=== PATIENT | female | born 1945 | race Caucasian/White ===

== ENCOUNTER 2016-08-15 09:36 | Outpatient (CLI) | payer MEDICARE, MEDICAID | END 2016-08-15 09:37 | disposition home or self-care (01) | DX: Z12.31 Encounter for screening mammogram for malignant neoplasm of breast (principal); R92.2 Inconclusive mammogram ==

== ENCOUNTER 2016-09-12 12:50 | Outpatient (CLI) | payer MEDICARE, MEDICAID ==
--- NOTE | 2016-09-12 13:21 | Mammography Report ---
DIGITAL DIAGNOSTIC RIGHT MAMMOGRAM: 09/12/2016 CLINICAL INDICATION: Possible obscured nodule on screening. TECHNIQUE: Right true lateral and spot compression views. COMPARISON: 08/15/2016, 04/06/2015, 04/14/2014, 04/06/2013, 02/28/2012, 11/07/2010 FINDINGS: The right breast again demonstrates heterogeneously dense fibroglandular parenchyma. The density in question, in the right upper outer posterior breast, dissipates evenly on additional compr ession. No underlying mass lesion is seen. IMPRESSION: NEGATIVE EXAMINATION. RECOMMENDATION: Routine annual screening unless otherwise clinically indicated. BIRADS CATEGORY 1 - NEGATIVE. STANDARD QUALIFYING STATEMENTS 1. This examination was reviewed with the aid of Computer-Aided Detection (CAD). 2. A negative or benign imaging report should not delay biopsy if clinically suspicious findings are present. Consider surgical consultation if warranted. More than 5% of cancers are not identified by i maging. 3. Dense breasts may obscure an underlying neoplasm. JOB #: [id number] EXT JOB #:
== END 2016-09-12 12:51 | disposition home or self-care (01) ==
LOC: DI 12:50
PROVIDERS: ATTEND Internal Medicine
DX: R92.8 Other abnormal and inconclusive findings on diagnostic imaging of breast (principal)

== ENCOUNTER 2016-10-01 18:59 | Outpatient (CLI) | payer MEDICARE, MEDICAID ==
--- NOTE | 2016-10-04 10:18 | Ultrasound Report ---
REVISED: THIS REPORT WAS ORIGINALLY SIGNED ON 10/04/2016 @ 1235. ORDERS LINKED ON 10/15/2016. BILATERAL LOWER EXTREMITY ARTERIAL DUPLEX WITH ABIs: 10/01/2016 CLINICAL INDICATION: Cold, numb feet, diminished pulses. TECHNIQUE: Real-time sonographic vascular imaging was performed by the ferryboat helper through the lower extremities utilizing both color-flow and Doppler spectral analysis. Multiple leather goods sales representative static images were saved for review. RIGHT SIDE SITE PSV WAVEFORM STEN BIOINFORMATICS PROGRAMMER 133 triphasic PSFA 92 triphasic MSFA 82 triphasic DSFA 111 triphasic PFA 108 triphasic POP 64 triphasic JOSEPHINE 99 triphasic PLANT EQUIPMENT ENGINEER 84 triphasic PER 61 triphasic DPA 91 triphasic LEFT SIDE SITE PSV WAVEFORM STEN BIOINFORMATICS PROGRAMMER 132 triphasic PSFA 44 triphasic MSFA 93 triphasic DSFA 85 triphasic PFA 97 triphasic POP 67 triphasic JOSEPHINE 91 biphasic PLANT EQUIPMENT ENGINEER 85 triphasic PER 72 biphasic DPA 80 biphasic TECHNIQUE: Real-time scanning was performed. SYSTOLIC PRESSURES RIGHT LEFT BRACHIAL ARTERY 111/62 109/60 POSTERIOR TIBIAL ARTERY 128/55 124/53 ANTERIOR TIBIAL ARTERY --- --- PERONEAL ARTERY --- --- ANKLE/ARM INDEX 1.2 1.1 FINDINGS: RIGHT LEG: Waveforms are triphasic. There is no evidence of a focal velocity increase to suggest a hemodynamically significant stenosis. LEFT LEG: Waveforms are predominantly triphasic. There is no evidence of a focal velocity increase to suggest a hemodynamically significant stenosis. PROMISE on the right measures 1.2, and on the left measures 1.1. IMPRESSION: NO EVIDENCE OF A FOCAL HEMODYNAMICALLY SIGNIFICANT STENOSIS IN EITHER LEG. NORMAL ABIs. MTDD
== END 2016-10-01 19:00 | disposition home or self-care (01) ==
LOC: DI 18:59
PROVIDERS: ATTEND Internal Medicine
DX: R20.0 Anesthesia of skin (principal); R09.89 Other specified symptoms and signs involving the circulatory and respiratory systems
CPT/HCPCS: 93922; 93925

== ENCOUNTER 2017-01-06 17:22 | Outpatient (CLI) | payer MEDICARE, MEDICAID ==
[2017-01-06] MEDS ORDERED: IOPAMIDOL-300 50 ML VIAL ONE (17:28)
[2017-01-06] MEDS ORDERED: IOPAMIDOL-300 100 ML VIAL ONE (17:55)
[2017-01-06] MEDS ORDERED: IOPAMIDOL-300 50 ML VIAL PO ONE (18:51)
[2017-01-06] MEDS ORDERED: IOPAMIDOL-300 100 ML VIAL IVP ONE (18:55)
--- NOTE | 2017-01-06 19:33 | CT Preliminary Report ---
Exam: CT ABDOMEN/PELVIS W/ IMPRESSION: 1. Moderate to marked diverticulosis with small area of acute diverticulitis. 2. Other chronic or incidental findings. [facility] SITE ID: [id number]
--- NOTE | 2017-01-06 19:35 | CT Report ---
EXAM: CT ABDOMEN AND PELVIS EXAM DATE: 01/06/2017 06:38 PM. CLINICAL HISTORY: LEFT LOWER QUADRANT PAIN. COMPARISONS: None. TECHNIQUE: Routine helical CT imaging was performed through the abdomen and pelvis. IV contrast: 100 cc Isovue-300. Enteric contrast: Yes. Reconstructions: Coronal and sagittal. In accordance with CT protocol optimization, one or more of the following dose reduction techniques w ere utilized for this exam: automated exposure control, adjustment of mA and/or KV based on patient s ize, or use of iterative reconstructive technique. FINDINGS: Lung Bases: Unremarkable. Liver: Cyst or Hemangioma in left lobe. Otherwise unremarkable. Gallbladder/Bile Ducts: Unremarkable. Spleen: Normal. Pancreas: Normal. Adrenal Glands: Normal. Kidneys: Normal. No masses or hydronephrosis. Peritoneal Cavity/Bowel: Moderate to marked colonic diverticulosis with subtle localized wall thicken ing and hazy infiltration of adjacent fat at the descending sigmoid junction level. No free fluid, fr ee air, or lymphadenopathy. The appendix is well visualized and normal. Pelvic Organs: Normal. The bladder and visualized pelvic organs are within normal limits. Vasculature: No aneurysms or other significant abnormality. Bones: Degenerative changes. Prominent Schmorl's node in anterior upper endplate of L2. Other: None. IMPRESSION: 1. Moderate to marked diverticulosis with small area of acute diverticulitis. 2. Other chronic or incidental findings. [facility] Referring Provider Line: [phone] SITE ID: [id number]
== END 2017-01-06 17:23 | disposition home or self-care (01) ==
LOC: DI 17:22
PROVIDERS: ATTEND Internal Medicine
DX: K57.32 Diverticulitis of large intestine without perforation or abscess without bleeding (principal); K57.30 Diverticulosis of large intestine without perforation or abscess without bleeding
CPT/HCPCS: 74177; Q9967

== ENCOUNTER 2017-08-08 12:16 | Outpatient (CLI) | payer MEDICARE, MEDICAID ==
--- NOTE | 2017-08-08 17:33 | XRAY Report ---
TWO VIEW CHEST: 08/08/2017 CLINICAL INDICATION: Cough. FINDINGS: Frontal and lateral views of the chest demonstrate a right middle lobe infiltrate. The cardiac silhouette is within normal limits. No effusion or pneumothorax is seen. IMPRESSION: RIGHT MIDDLE LOBE INFILTRATE. TD: 08/08/2017 12:45
== END 2017-08-08 12:17 | disposition home or self-care (01) ==
LOC: DI 12:16
PROVIDERS: ATTEND Internal Medicine
DX: R05 Cough (principal); R91.8 Other nonspecific abnormal finding of lung field
CPT/HCPCS: 71046

== ENCOUNTER 2017-09-08 13:21 | Outpatient (CLI) | END 2017-09-08 13:22 | disposition home or self-care (01) ==

== ENCOUNTER 2017-09-24 09:20 | Outpatient (CLI) | payer MEDICARE, MEDICAID ==
--- NOTE | 2017-09-24 11:32 | Mammography Report ---
Procedure Date: 09/24/2017 Accession Number: [id number] / [id number] Procedure: [facility] - Diag Special Views Dig LT CPT Code: FULL RESULT: EXAM: Diag Special Views Dig LT DATE: 09/24/2017 9:36 AM CLINICAL HISTORY: Possible nodule left breast on screening examination TECHNIQUE: Left true lateral and spot compression views COMPARISON: 09/08/2017, 09/12/2016, 08/15/2016, 04/06/2015, 04/14/2014, 04/06/2013, 02/28/2012, 11/07/2010 FINDINGS: The breasts demonstrate heterogeneously dense fibroglandular parenchyma bilaterally. The questioned nodule does not persist in the left breast. No underlying mass lesion or architectural distortion is identified. IMPRESSION: Benign findings RECOMMENDATION: Recommend routine annual Screening mammography unless otherwise clinically indicated. BIRADS CATEGORY 2: Benign findings STANDARD QUALIFYING STATEMENTS: 1. This examination was reviewed with the aid of Computer-Aided Detection (CAD). 2. A negative or benign imaging report should not delay biopsy if clinically suspicious findings are present. Consider surgical consultation if warrented. More than 5% of cancers are not identified by imaging. 3. Dense breasts may obscure an underlying neoplasm.
== END 2017-09-24 09:21 | disposition home or self-care (01) ==
LOC: DI 09:20
PROVIDERS: ATTEND Internal Medicine
DX: R92.8 Other abnormal and inconclusive findings on diagnostic imaging of breast (principal)

== ENCOUNTER 2018-10-20 08:14 | Outpatient (CLI) | payer MEDICARE, MEDICAID ==
--- NOTE | 2018-10-21 09:38 | Mammography Report ---
Reason: SCREENING MAMMO Procedure Date: 10/20/2018 Accession Number: [id number] / [id number] Procedure: [facility] - Screening Mammo w/Hans CPT Code: FULL RESULT: EXAM: Screening Mammo w/Hans DATE: 10/20/2018 9:03 AM CLINICAL HISTORY: Screening encounter. History of nulliparity. TECHNIQUE: (B) - Bilateral CC, laterally exaggerated CC, MLO views were obtained. COMPARISON: 09/24/2017 through 04/14/2014. PARENCHYMAL PATTERN: (D) - The breast(s) demonstrate(s) heterogeneously dense fibroglandular parenchyma. FINDINGS: There are no suspicious masses, calcifications, or areas of distortion. IMPRESSION: Negative examination. BI-RADS category 1. RECOMMENDATION: (ANNUAL) - Recommend routine annual screening mammography. BI-RADS CATEGORY: (1) - Negative. STANDARD QUALIFYING STATEMENTS: 1. This examination was not reviewed with the aid of Computer-Aided Detection (CAD). 2. A negative or benign imaging report should not preclude biopsy if clinically suspicious findings are present. 3. Dense breasts may obscure an underlying neoplasm. 4. This examination was reviewed with the aid of 3D breast imaging (tomosynthesis).
== END 2018-10-20 08:15 | disposition home or self-care (01) ==
LOC: DI 08:14
PROVIDERS: ATTEND Internal Medicine
DX: Z12.31 Encounter for screening mammogram for malignant neoplasm of breast (principal)
CPT/HCPCS: 77063; 77067

== ENCOUNTER 2018-12-28 10:53 | Emergency (ER) | payer MEDICARE, MEDICAID ==
--- NOTE | 2018-12-28 12:58 | ED Physician Documentation ---
History of Present Illness - Stated complaint Stated Complaint: RT ARM PX,NAUSEA - Chief complaint Chief Complaint: Neuro - History obtained from History obtained from: Patient (73-year-old woman with history of dermatomyositis. She had been weaning off of her prednisone and stopped it a few weeks ago. Subsequent to that she got a Reclast and rituximab infusion on the fourth. That was 10 days ago. Subsequent to that she is had arm soreness and tightness on the right. Note made that she did get the infusion in that arm. The infusion was in the hand but she feels it kind of in the bicep and axilla. Its worse when she raises her arm. She is had episodes of feeling clammy. No primary chest pain.) Review of Systems Constitutional: reports: Chills, Fatigue, Sweats Cardiac: denies: Chest pain / pressure, Palpitations, Pedal edema, Calf pain Respiratory: denies: Dyspnea, Cough PD PAST MEDICAL HISTORY - Past Medical History Past Medical History: Yes Cardiovascular: High cholesterol Respiratory: None Neuro: None Endocrine/Autoimmune: HyPOthyroidism GI: None CARPENTRY TEACHER: None : None HEENT: Other Psych: None Musculoskeletal: Osteopenia Derm: Other Other Past Medical History: PRP - Past Surgical History Past Surgical History: Yes - Present Medications Home Medications: Ambulatory Orders Medication Instructions Recorded Confirmed Levothyroxine Sodium [Levoxyl] 1 mcg ORAL DAILY 04/20/14 04/21/14 Sertraline [Zoloft] 1 mg ORAL DAILY 04/20/14 04/21/14 Ibuprofen [Advil] 4 PRN 04/21/14 04/21/14 - Allergies Allergies/Adverse Reactions: Allergies Allergy/AdvReac Type Severity Reaction Status Date / Time azithromycin [From Zithromax] AdvReac Unknown Verified 12/28/18 10:59 ciprofloxacin [From Cipro] AdvReac Unknown Verified 12/28/18 10:59 ciprofloxacin HCl * AdvReac Unknown Verified 12/28/18 10:59 [From Cipro] erythromycin base AdvReac Unknown Verified 12/28/18 10:59 [From E-Mycin] Penicillins AdvReac Unknown Verified 12/28/18 10:59 - Social History Does the pt smoke?: No Smoking Status: Never smoker Does the pt drink ETOH?: Yes Does the pt have substance abuse?: Yes Substance Use and Type: Marijuana - Immunizations Immunizations are current?: Yes - POLST Patient has POLST: No PD ED PE NORMAL - Vitals Vital signs reviewed: Yes - General General: Alert and oriented X 3, No acute distress - HEENT HEENT: PERRL, EOMI - Neck Neck: Supple, no meningeal sign, No bony TTP - Cardiac Cardiac: RRR, No murmur - Respiratory Respiratory: No respiratory distress, Clear bilaterally - Abdomen Abdomen: Non tender - Extremities Extremities: Other (No specific tenderness or soreness about the right arm, full range of motion. Equal radial pulses.) - Neuro Neuro: Alert and oriented X 3, Normal speech Results - Vitals Vitals: Vital Signs - 24 hr 12/28/18 12/28/18 10:59 12:51 Temperature 36.8 C Heart Rate 78 80 Respiratory 16 15 Rate Blood Pressure 127/73 150/116 H O2 Saturation 100 98 Oxygen O2 Source Room air - EKG (time done) 1240 Rate: Rate (enter#) (65) Rhythm: NSR [place]: Normal Intervals: Normal [place] QRS: Normal Ischemia: Normal ST segments Computer interpretation: Agree with computer - Labs Labs: Laboratory Tests 12/28/18 12/28/18 12/28/18 13:00 13:00 13:00 WBC 6.5 RBC 4.33 Hgb 12.7 Hct 37.4 MCV 86.4 MCH 29.3 MCHC 34.0 RDW 13.2 Plt Count 195 MPV 8.3 Neut # (Auto) 4.3 Lymph # (Auto) 1.2 L [place] # (Auto) 0.7 Eos # (Auto) 0.2 Baso # (Auto) 0.1 Absolute Nucleated RBC 0.00 Nucleated RBC % 0.0 Sodium 138 Potassium 4.3 Chloride 102 Carbon Dioxide 25 Anion Gap 11.0 BUN 17 Creatinine 1.0 Estimated GFR (MDRD) 54 L Glucose 86 Calcium 9.3 Total Bilirubin 0.6 AST 42 ALT 44 Alkaline Phosphatase 79 Troponin I High Sens 3.5 Total Protein 7.2 Albumin 4.3 Globulin 2.9 Albumin/Globulin Ratio 1.5 Lipase 36 PD MEDICAL DECISION MAKING - ED course ED course: 73-year-old woman with right arm pain going on for 10 days. Her and my concern is that this is some sort of anginal equivalent but would be very atypical. It started after infusion of Reclast and rituximab. She has had a rituximab before, but previously was on prednisone with it and is having some symptoms of steroid withdrawal I think 2. Her cardiac work-up here today was negative and she is advised to go back on to 1 mg of prednisone every other day pending rheumatology follow-up. Departure - Departure Disposition: 01 Home, Self Care Clinical Impression: Right arm pain Condition: Good Record reviewed to determine appropriate education?: Yes Instructions: ED Acute Pain [facility] Comments: Your cardiac work-up today was negative. There is no evidence of a coronary issue acutely. As discussed I recommend going back on the prednisone at a dose of 1 mg every other day until you follow-up with your early childhood teacher. Return for new or worsening symptoms.
[2018-12-28 13:15] LABS: BASOPHILS # (AUTO) 0.1 10^3/uL (0.0-0.1); BASOPHILS % (AUTO) 0.8 %; EOSINOPHILS # (AUTO) 0.2 10^3/uL (0.0-0.7); EOSINOPHILS % (AUTO) 2.6 %; HGB - HEMOGLOBIN 12.7 g/dL (12.0-16.0); LYMPHOCYTES # (AUTO) 1.2 10^3/uL (1.5-3.5); LYMPHOCYTES % (AUTO) 18.7 %; MEAN CORPUSCULAR HEMOGLOBIN 29.3 pg (27.0-31.0); MEAN CORPUSCULAR VOLUME 86.4 fL (81.0-99.0); MEAN PLATELET VOLUME 8.3 fL (7.9-10.8); MONOCYTES # (AUTO) 0.7 10^3/uL (0.0-1.0); MONOCYTES % (AUTO) 10.6 %; NEUTROPHILS # (AUTO) 4.3 10^3/uL (1.5-6.6); NEUTROPHILS % (AUTO) 66.8 %; PLT - PLATELET COUNT 195 10^3/uL (130-450); RED BLOOD COUNT 4.33 10^6/uL (4.20-5.40); RED CELL DISTRIBUTION WIDTH 13.2 % (12.0-15.0); WHITE BLOOD COUNT 6.5 x10^3/uL (4.8-10.8)
[2018-12-28 13:36] LABS: ALBUMIN 4.3 g/dL (3.2-5.5); ALBUMIN/GLOBULIN RATIO 1.5 (1.0-2.2); BILIRUBIN,TOTAL 0.6 mg/dL (0.2-1.0); CALCIUM 9.3 mg/dL (8.5-10.3); TOTAL PROTEIN 7.2 g/dL (6.7-8.2)
[2018-12-28 14:05] VITALS: BP 138/68
== END 2018-12-28 14:05 | disposition home or self-care (01) ==
LOC: ED 10:53
DX: M79.601 Pain in right arm (principal); M33.90 Dermatopolymyositis, unspecified, organ involvement unspecified
CPT/HCPCS: 36415; 80053; 83690; 84484; 85025; 93005; 99282; 99284

== ENCOUNTER 2019-11-02 10:24 | Outpatient (CLI) | payer MEDICARE, MEDICAID ==
[2019-11-02 10:45] LABS: BASOPHILS # (AUTO) 0.1 10^3/uL (0.0-0.1); BASOPHILS % (AUTO) 1.1 %; EOSINOPHILS # (AUTO) 0.4 10^3/uL (0.0-0.7); EOSINOPHILS % (AUTO) 6.3 %; HGB - HEMOGLOBIN 12.8 g/dL (12.0-16.0); LYMPHOCYTES % (AUTO) 18.1 %; MEAN CORPUSCULAR HEMOGLOBIN 30.6 pg (27.0-31.0); MEAN CORPUSCULAR HGB CONC 34.4 g/dL (32.0-36.0); MEAN PLATELET VOLUME 8.1 fL (7.9-10.8); MONOCYTES # (AUTO) 0.6 10^3/uL (0.0-1.0); MONOCYTES % (AUTO) 10.4 %; NEUTROPHILS # (AUTO) 3.6 10^3/uL (1.5-6.6); NEUTROPHILS % (AUTO) 63.7 %; PLT - PLATELET COUNT 164 10^3/uL (130-450); RED BLOOD COUNT 4.18 10^6/uL (4.20-5.40); RED CELL DISTRIBUTION WIDTH 13.4 % (12.0-15.0); WHITE BLOOD COUNT 5.7 x10^3/uL (4.8-10.8)
[2019-11-02 11:02] LABS: ALBUMIN 4.3 g/dL (3.2-5.5); ALBUMIN/GLOBULIN RATIO 1.5 (1.0-2.2); ALKALINE PHOSPHATASE 50 IU/L (42-121); ALT ALANINE AMINOTRANSFERASE 34 IU/L (10-60); AST ASPARTATE AMINOTRANSFERASE 31 IU/L (10-42); BILIRUBIN,TOTAL 0.6 mg/dL (0.2-1.0); BUN - BLOOD UREA NITROGEN 18 mg/dL (6-20); CALCIUM 9.5 mg/dL (8.5-10.3); CARBON DIOXIDE - CO2 28 mmol/L (21-32); CHLORIDE 101 mmol/L (101-111); CK- CREATINE KINASE 95 IU/L (22-269); CREATININE 0.9 mg/dL (0.4-1.0); GLUCOSE 98 mg/dL (70-100); SODIUM 139 mmol/L (135-145); TOTAL PROTEIN 7.2 g/dL (6.7-8.2)
[2019-11-02 11:13] LABS: CRP - C-REACTIVE PROTEIN < 1.0 mg/dL (0-1.0)
== END 2019-11-02 10:25 | disposition home or self-care (01) ==
LOC: LAB 10:24
PROVIDERS: ATTEND Internal Medicine Rheumatology
DX: M33.90 Dermatopolymyositis, unspecified, organ involvement unspecified (principal); G62.9 Polyneuropathy, unspecified; M81.0 Age-related osteoporosis without current pathological fracture; Z51.81 Encounter for therapeutic drug level monitoring; Z79.899 Other long term (current) drug therapy
CPT/HCPCS: 36415; 80053; 82306; 82550; 82784; 84207; 84590; 85025; 85651; 86140

== ENCOUNTER 2021-09-19 15:42 | Outpatient (CLI) | payer MEDICARE, MEDICAID | END 2021-09-19 15:43 | disposition home or self-care (01) | LOC: LAB 15:42 | PROVIDERS: ATTEND Internal Medicine | DX: J06.9 Acute upper respiratory infection, unspecified (principal); Z20.822 Contact with and (suspected) exposure to COVID-19 ==

== ENCOUNTER 2021-12-05 10:53 | Outpatient (CLI) | payer MEDICARE, MEDICAID | END 2021-12-05 10:54 | disposition home or self-care (01) | LOC: LAB 10:53 | DX: Z01.812 Encounter for preprocedural laboratory examination (principal); Z20.822 Contact with and (suspected) exposure to COVID-19 ==